=== PATIENT | female | born 1960 | race Two or more races ===

== ENCOUNTER 2020-01-22 15:51 | Emergency (ER) | payer OTHER ==
[~2020-01-22] VITALS: Ht 162.6 cm; Wt 79.4 kg
[2020-01-22] MEDS ORDERED: SIMVASTATIN5 MG (16:16)
== END 2020-01-22 22:42 | disposition home or self-care (01) ==
LOC: ER 15:51
DX: S00.83XA Contusion of other part of head, initial encounter (principal); S60.222A Contusion of left hand, initial encounter; M54.2 Cervicalgia; W22.8XXA Striking against or struck by other objects, initial encounter; Y93.89 Activity, other specified; Y92.832 Beach as the place of occurrence of the external cause; Y99.8 Other external cause status